=== PATIENT | female | born 1965 | race American Indian/Alaskan Native ===

== ENCOUNTER 2017-07-16 01:21 | Emergency (ER) | payer BC, OTHER ==
[2017-07-16] MEDS ORDERED: Sodium Chloride 0.9% 1,000 ML IV ONE (01:50)
--- NOTE | 2017-07-16 01:50 | C.PDOC ---
Time Seen by Provider: 07/16/17 01:48 Chief Complaint (Nursing): Cough, Cold, Congestion Past Medical History Vital Signs: Last Vital Signs Temp 98.1 F 07/16/17 01:32 Pulse 84 07/16/17 01:32 Resp 16 07/16/17 01:32 BP 110/78 07/16/17 01:32 Pulse Ox 96 07/16/17 01:32 - Medical History PMH: Asthma, HTN Surgical History: Appendectomy Family History: States: Unknown Family Hx - Social History Hx Tobacco Use: No Hx Alcohol Use: No Hx Substance Use: No - Immunization History Hx Tetanus Toxoid Vaccination: No Hx Influenza Vaccination: No Hx Pneumococcal Vaccination: No ED Course And Treatment O2 Sat by Pulse Oximetry: 96 Disposition Counseled Patient/Family Regarding: Studies Performed, Diagnosis, Need For Followup, Rx Given - Disposition Disposition Time: 01:49
--- NOTE | 2017-07-16 01:52 | C.PDOC ---
History Of Present Illness Patient is a 52 y/o female who presents to the ED with a complaint of worsening SOB associated with dry, unproductive cough. Patient notes chest discomfort with cough. No other physical complaints at this time. Time Seen by Provider: 07/16/17 01:48 Chief Complaint (Nursing): Cough, Cold, Congestion History Per: Patient History/Exam Limitations: no limitations Onset/Duration Of Symptoms: Days, Worse Since Current Symptoms Are (Timing): Still Present Initiating Event: Upper Respiratory Illness Exacerbating Factor(s): Coughing Current Respiratory Medications: See Home Med List Severity: Moderate Pain Scale Rating Of: 4 Associated Symptoms: Chest Pain (chest discomfort when coughing), Other (dry, unproductive cough ) Reports Recently: Treated By A Physician Recent travel outside of the [place]: No Additional History Per: Patient Past Medical History Reviewed: Historical Data, Nursing Documentation, Vital Signs Vital Signs: Last Vital Signs Temp 98.1 F 07/16/17 01:32 Pulse 84 07/16/17 01:32 Resp 16 07/16/17 01:32 BP 110/78 07/16/17 01:32 Pulse Ox 96 07/16/17 02:24 - Medical History PMH: Asthma, HTN Surgical History: Appendectomy Family History: States: No Known Family Hx - Social History Hx Tobacco Use: No Hx Alcohol Use: No Hx Substance Use: No - Immunization History Hx Tetanus Toxoid Vaccination: No Hx Influenza Vaccination: No Hx Pneumococcal Vaccination: No Review Of Systems Constitutional: Negative for: Fever, Chills ENT: Negative for: Throat Pain Cardiovascular: Negative for: Chest Pain (chest discomfort associated with cough ) Respiratory: Positive for: Cough (dry, unproductive), Shortness of Breath Gastrointestinal: Negative for: Nausea, Vomiting Genitourinary: Negative for: Dysuria Musculoskeletal: Negative for: Back Pain Skin: Negative for: Rash Neurological: Negative for: Weakness Psych: Negative for: Anxiety Physical Exam - Physical Exam Appears: Well, Non-toxic Skin: Warm, Dry Head: Normacephalic Eye(s): bilateral: Normal Inspection Ear(s): Bilateral: Normal Oral Mucosa: Moist Throat: Other (oropharynx clear) Neck: Supple Chest: Symmetrical Cardiovascular: Rhythm Regular, No Murmur Respiratory: Decreased Breath Sounds, No Accessory Muscle Use, No Rales, No Rhonchi, Wheezing (scattered) Gastrointestinal/Abdominal: Soft, No Tenderness Back: No CVA Tenderness Extremity: No Tenderness Extremity: Bilateral: Atraumatic Neurological/Psych: Oriented x3, Normal Speech, Normal Cognition Gait: Steady ED Course And Treatment - Laboratory Results Result Diagrams: 07/16/17 02:19 07/16/17 02:19 O2 Sat by Pulse Oximetry: 96 Pulse Ox Interpretation: Normal - Radiology CXR: Interpreted by Me, Viewed By Me CXR Interpretation: No: Infiltrates, Fracture, Pnemothorax Progress Note: CXR and blood work ordered. Medrol, nebulizer treatment, and IV fluids administered. Reevaluation Time: 04:14 Reassessment Condition: Improved Disposition Counseled Patient/Family Regarding: Studies Performed, Diagnosis, Need For Followup, Rx Given - Disposition Referrals: Jacquelyn Hernandez MD [Medical Doctor] - Disposition: HOME/ ROUTINE Disposition Time: 04:15 Condition: FAIR Additional Instructions: Please return if symptoms recur Prescriptions: Albuterol HFA [Ventolin HFA 90 mcg/actuation (8 g)] 2 puff IH [id number] #1 puff Azithromycin [Zithromax Tri-Santo] 500 mg PO DAILY #3 tab Oseltamivir Phosphate [Tamiflu] 75 mg PO BID #10 capsule Prednisone [Deltasone] 20 mg PO DAILY #5 tablet Instructions: Upper Respiratory Infection (ED), Influenza (ED) Forms: [facility] (Albanian) - Clinical Impression Clinical Impression: Upper respiratory infection - Scribe Statement The provider has reviewed the documentation as recorded by the Scribe Liz Henriquez All medical record entries made by the Scribe were at my direction and personally dictated by me. I have reviewed the chart and agree that the record accurately reflects my personal performance of the history, physical exam, medical decision making, and the department course for this patient. I have also personally directed, reviewed, and agree with the discharge instructions and disposition.
[2017-07-16 02:22] LABS: BASO % 0.6 % (0.0-2.0); EOS # 0.1 K/uL (0.0-0.7); EOS % 2.1 % (0.0-4.0); HEMOGLOBIN 11.4 g/dL (11.0-16.0); LYMPH # 0.7 K/uL (1.0-4.3); LYMPH % 22.6 % (20.0-40.0); MEAN CELL VOLUME 91.6 fL (81.0-99.0); MEAN CORPUSCULAR HEMOGLOBIN 31.3 pg (27.0-31.0); MEAN CORPUSCULAR HGB CONC 34.2 g/dL (33.0-37.0); MEAN PLATELET VOLUME 7.4 fL (7.2-11.7); MONO # 0.4 K/uL (0.0-0.8); MONO % 11.6 % (0.0-10.0); NEUT % 63.1 % (50.0-75.0); NRBC % 0.1 % (0.0-2.0); RBC 3.64 Mil/uL (3.80-5.20); RED CELL DISTRIBUTION WIDTH 12.5 % (11.5-14.5); WHITE BLOOD COUNT 3.1 K/uL (4.8-10.8)
[2017-07-16 02:24] LABS: VENOUS BLOOD GAS BASE EXCESS 0.8 mmol/L (0.0-2.0); VENOUS BLOOD GAS PCO2 39 mmHg (40-60); VENOUS BLOOD GAS PO2 47 mm/Hg (30-55); VENOUS BLOOD PH 7.42 (7.32-7.43)
[2017-07-16] MEDS ORDERED: Albuterol-Ipratrop 3 mg / 0.5 (3 ml) UD ONE ×3 (02:36→02:44)
[2017-07-16 02:42] LABS: ALB/GLOB RATIO 1.1 (1.0-2.1); ALBUMIN 3.7 g/dL (3.5-5.0); ALT/SGPT 47 U/L (9-52); AST/SGOT 47 U/L (14-36); BLOOD UREA NITROGEN 12 mg/dL (7-17); CALCIUM 8.1 mg/dl (8.6-10.4); GFR AFRICAN-AMERICAN > 60; GFR NON-AFRICAN AMERICAN > 60
[2017-07-16] MEDS ORDERED: Azithromycin 500mg/250ML NS 250 MG/125 ML BAG IVPB STA (03:40)
[2017-07-16 05:06] VITALS: BP 126/79; PULSE 90; RESP 18; TEMP 98.5; O2SAT 99
--- NOTE | 2017-07-16 07:17 | RAD ---
Chest x-ray two views History: Shortness of breath. Comparison: None available. Findings: No focal infiltrate or effusion. Bibasilar breast and nipple shadows. Heart size within normal limits. Impression: No focal infiltrate or effusion.
== END 2017-07-16 05:07 | disposition home or self-care (01) ==
LOC: C.ER 01:21
DX: J06.9 Acute upper respiratory infection, unspecified (principal); I10 Essential (primary) hypertension
CPT/HCPCS: 71046; 80053; 82803; 85025; 96365; 96375; 99283; J0456; J2930; J7040

== ENCOUNTER 2018-05-23 12:42 | Emergency (ER) | payer BC ==
[2018-05-23 12:52] VITALS: BP 109/69; PULSE 72; RESP 18; TEMP 97.6; O2SAT 99
--- NOTE | 2018-05-23 13:52 | C.PDOC ---
History Of Present Illness 53 y/o female comes in complaining of a rash above her left eye since 2 days ago. States she recently had her eyebrows done and may have contributed to rash. Otherwise she denies fever and has no other complaints. Time Seen by Provider: 05/23/18 12:59 Chief Complaint (Nursing): Abnormal Skin Integrity History Per: Patient History/Exam Limitations: no limitations Onset/Duration Of Symptoms: Days Current Symptoms Are (Timing): Still Present Past Medical History Reviewed: Historical Data, Nursing Documentation, Vital Signs Vital Signs: Last Vital Signs Temp 97.6 F 05/23/18 12:49 Pulse 72 05/23/18 12:49 Resp 18 05/23/18 12:49 BP 109/69 05/23/18 12:49 Pulse Ox 99 05/23/18 12:49 - Medical History PMH: Asthma, HTN Surgical History: Appendectomy Family History: States: No Known Family Hx - Social History Hx Tobacco Use: No Hx Alcohol Use: No Hx Substance Use: No - Immunization History Hx Tetanus Toxoid Vaccination: No Hx Influenza Vaccination: No Hx Pneumococcal Vaccination: No Review Of Systems Except As Marked, All Systems Reviewed And Found Negative. Skin: Positive for: Rash Physical Exam - Physical Exam Appears: Non-toxic, No Acute Distress Skin: Warm, Dry, Rash (macular erythema rash to left forehead and left eyebrow region, no ocular involvement and no colon sign), Other (Forehead: areas of papular regions but no vesicles or cellulitic component) Eye(s): bilateral: Normal Inspection Ear(s): Bilateral: Normal Oral Mucosa: Moist Throat: Normal, No Erythema, No Exudate Neck: Supple Chest: Symmetrical Cardiovascular: Rhythm Regular, No Murmur Respiratory: Normal Breath Sounds, No Rales, No Rhonchi, No Wheezing Gastrointestinal/Abdominal: Soft, No Tenderness Extremity: Bilateral: Normal ROM Neurological/Psych: Oriented x3, Normal Speech ED Course And Treatment O2 Sat by Pulse Oximetry: 99 (RA) Pulse Ox Interpretation: Normal Medical Decision Making Medical Decision Making: Impression: Rash Plan: --Benadryl 25 mg PO --Claritin 10 mg PO --Valtrex PO --Prednisone 60 mg PO All rash appear to be contact dermatitis except of forehead where questionable beginning vessicle formation may be occurring. Patient is aware and will follow up with family doctor within 2 days for further evaluation. Advised patient to return to ER if symptoms worsens or progress. Will treat for both zoster and contact dermatitis. Disposition Counseled Patient/Family Regarding: Diagnosis, Need For Followup, Rx Given - Disposition Referrals: Jacquelyn Hernandez MD [Medical Doctor] - Disposition: HOME/ ROUTINE Disposition Time: 13:50 Condition: STABLE Additional Instructions: follow up with your doctor within 2 days call to make an appointment take medications as prescribed return to ER if symptoms worsens or progress you can take 1 to 2 tabs of benadryl every 6 hours as needed for itching Prescriptions: Loratadine [Claritin] 10 mg PO DAILY PRN #15 tab PRN Reason: Other RX: predniSONE [predniSONE Tab] 50 mg PO DAILY #4 tab Valacyclovir HCl [Valtrex] 1,000 mg PO TID 7 Days #21 tablet Instructions: Shingles (DC), Contact Dermatitis (DC), Skin Rash (DC) Forms: [facility] (Maori), General Discharge Instructions - Clinical Impression Clinical Impression: Rash, Contact dermatitis, Shingles - Pr[place]hibe Statement The provider has reviewed the documentation as recorded by the Isaac Sloan Provider Attestation: All medical record entries made by the Isaac were at my direction and personally dictated by me. I have reviewed the chart and agree that the record accurately reflects my personal performance of the history, physical exam, medical decision making, and the department course for this patient. I have also personally directed, reviewed, and agree with the discharge instructions and disposition.
== END 2018-05-23 14:11 | disposition home or self-care (01) ==
LOC: C.ER 12:42
DX: B02.9 Zoster without complications (principal); L25.9 Unspecified contact dermatitis, unspecified cause; I10 Essential (primary) hypertension